=== PATIENT | male | born 1960 | race Caucasian/White ===

== ENCOUNTER → 2021-02-10 03:01 | Outpatient (CLI) | payer BC, SELFPAY ==
[2021-02-10 21:05] LABS: SARS-CoV-2 RNA PCR Negative
== END ==
PROVIDERS: Visit Provider Internal Medicine Gastroenterology
DX: Z01.812 Encounter for preprocedural laboratory examination (principal); Z20.822 Contact with and (suspected) exposure to COVID-19
CPT/HCPCS: C9803; U0003; U0005

== ENCOUNTER 2021-02-13 01:07 | Day surgery (SDC) | payer BC, SELFPAY ==
[2021-02-03 13:54] VITALS: BMI 28.1
[2021-02-13] MEDS: LACTATED RINGERS 1,000 ML 150 ML IV CONT (08:23)
[2021-02-13 08:24] VITALS: BP 137/84; PULSE 76; RESP 16; TEMP 36.4; O2SAT 98; BMI 28.8
--- NOTE | 2021-02-13 08:28 | WPDANESEPPF ---
Anes - Initial Pre Proc Eval Procedure: Operation Date: 02/13/21 09:30 Proposed Procedures p Screening Colonoscopy - Aston Carballo MD Date/Time: 02/13/21 08:28 Surgeon: Aston Carballo MD Pre Op Diagnosis: neoplasm Screening Patient Data Age: 60 Gender: M Height: 5 ft 8 in Weight: 86 kg Last Vital Signs Temp 97.6 F 02/13/21 08:24 Pulse 76 02/13/21 08:24 Resp 16 02/13/21 08:24 BP 137/84 02/13/21 08:24 Pulse Ox 98 02/13/21 08:24 Allergies Allergy/AdvReac Type Severity Reaction Status Date / Time meperidine [From Demerol] Allergy Unknown Verified 02/13/21 08:21 Home Medications Medication Instructions Recorded Confirmed Type ezetimibe [Zetia] 20 mg PO DAILY 02/03/21 02/03/21 History lisinopril 20 mg PO DAILY 02/03/21 02/03/21 History simvastatin 20 mg PO HS 02/03/21 02/03/21 History Patient hx anesthesia problems: none Family hx anesthesia problems: none [facility] Past Medical History Medical History (Updated 02/13/21 @ 08:25 by Nathaniel Spears MD) Hyperlipidemia Hypertension Surgical History Surgical History (Updated 10/08/19 @ 13:37 by Nash Savage PA-C) History of orthopedic surgery Social History Social History (Updated 10/08/19 @ 13:37 by Nash Savage PA-C) Smoking status: Never smoker Alcohol intake: never Substance use: never Substance use type: does not use Living arrangements: with family Gender identity (if verbalized by the patient): Male Spiritual care concerns: No Anes - Eval Final PreProcedure Day of Procedure 02/13/21 08:28 Patient weight: overweight Heart: regular rate and rhythm Lungs: clear to auscultation Airway: Mallampati scale class II Neurological: alert and oriented Last oral intake: >/= 8 hours ASA classification: II Emergent: no Anesthetic plan: proceed Anesthesia type and monitoring: general GIVS and standard monitoring Informed Consent: The patient's anesthetic plan and its attendant risks and benefits were discussed with the patient/family/POA. Questions were solicited and answers provided to the satisfaction of the patient/family/POA.
--- NOTE | 2021-02-13 09:21 | PM.HPGS ---
History of Present Illness History of Present Illness Consent: Risks, benefits, and alternatives have been discussed and questions answered. Patient agrees to proceed with procedure. Chief complaint: neoplasm Screening Narrative: Kyle Gallagher is a 60 year old male For colon cancer screen Review of Systems Review of Systems: All systems reviewed & are unremarkable except as noted in HPI and below PMFSH Past Medical History Medical History Hyperlipidemia Hypertension Surgical History Surgical History History of orthopedic surgery Social History Social History Smoking status: Never smoker Alcohol intake: never Substance use: never Substance use type: does not use Living arrangements: with family Gender identity (if verbalized by the patient): Male Spiritual care concerns: No Meds Home Medications and Allergies Home Medications Medication Instructions Recorded Confirmed Type ezetimibe [Zetia] 20 mg PO DAILY 02/03/21 02/03/21 History lisinopril 20 mg PO DAILY 02/03/21 02/03/21 History simvastatin 20 mg PO HS 02/03/21 02/03/21 History Allergies Allergy/AdvReac Type Severity Reaction Status Date / Time meperidine [From Demerol] Allergy Unknown Verified 02/13/21 08:21 Vital Signs Vital Signs - 24 hr 02/13/21 08:24 Temperature 36.4 C Pulse Rate 76 Respiratory Rate 16 Blood Pressure 137/84 Pulse Oximetry 98 Exam Resp: Auscultation: clear to auscultation bilaterally Cardio: Rate: regular rate Rhythm: regular rhythm GI: GI Palp: Yes Soft to palpation and No Tenderness to palpation present (GI) Assessment and Plan Assessment and plan (1) Colon cancer screening: Code(s): Z12.11 - Encounter for screening for malignant neoplasm of colon Status: Acute Assessment and Plan: Colonoscopy with possible biopsy or polypectomy or cautery or injection of substances.
[2021-02-13 09:51] VITALS: BP 97/65; PULSE 63; RESP 23; O2SAT 96
[2021-02-13 10:01] VITALS: BP 109/70; PULSE 58; RESP 17; O2SAT 97
[2021-02-13 10:11] VITALS: BP 122/76; PULSE 53; RESP 15; O2SAT 97
== END 2021-02-13 10:25 | disposition home or self-care (01) ==
PROVIDERS: Visit Provider Internal Medicine Gastroenterology
PROC: 0DJD8ZZ Inspection of Lower Intestinal Tract, Via Natural or Artificial Opening Endoscopic (ICD-10-PCS; CPT 45378; principal; 2021-02-13 09:30)
DX: Z12.11 Encounter for screening for malignant neoplasm of colon (principal); K63.5 Polyp of colon; D12.4 Benign neoplasm of descending colon; K57.30 Diverticulosis of large intestine without perforation or abscess without bleeding; I10 Essential (primary) hypertension; E78.5 Hyperlipidemia, unspecified
CPT/HCPCS: 45380; 45385; 88305; J2704; J7120